=== PATIENT | female | born 1995 ===

== ENCOUNTER 2020-04-06 08:38 | Outpatient (CLI) | payer OTHER ==
[2020-04-06 09:11] VITALS: BP 135/77
[2020-04-06] MEDS ORDERED: LACTATED RINGERS 2,000 ML ONE (10:49)
[2020-04-06] MEDS: TERBUTALINE 1 MG/1 ML INJ SUB-Q SCH ×3 (11:02→12:29)
== END 2020-04-06 14:04 | disposition home or self-care (01) ==
LOC: TRG 08:38 → APU 08:39 → TRG 14:04
PROVIDERS: ATTEND Obstetrics & Gynecology
DX: O62.9 Abnormality of forces of labor, unspecified (principal); Z3A.39 39 weeks gestation of pregnancy
CPT/HCPCS: 59025; 96372; J3105; J7120; 96360; 96361

== ENCOUNTER 2020-04-07 03:37 | Inpatient (IN) | payer OTHER, SELFPAY ==
[2020-04-07] MEDS ORDERED: OXYTOCIN 10 UNIT/1 ML INJ ONE (03:44)
[2020-04-07] MEDS ORDERED: OXYTOCIN DRIP 30,000 MILLIUNITS/500 ML BAG IV ONE (03:53)
[2020-04-07] MEDS ORDERED: MINERAL OIL 30 ML ORAL LIQD PO PRN (04:15)
[2020-04-07] MEDS ORDERED: fentaNYL 100 MCG/2 ML INJ IV PRN (04:15)
[2020-04-07] MEDS ORDERED: LACTATED RINGERS 1,000 ML IV SCH (04:15)
[2020-04-07] MEDS ORDERED: ONDANSETRON 4 MG/2 ML INJ IV PRN (04:15)
[2020-04-07] MEDS ORDERED: ePHEDrine SULFATE 50 MG/1 ML INJ IV PRN (04:15)
[2020-04-07] MEDS ORDERED: LIDOCAINE (2%) 20 MG/1 ML VIAL 20 ML MDV INFILTRATI ONE (04:15)
[2020-04-07] MEDS ORDERED: OXYTOCIN DRIP 30 UNITS/500 ML BAG IV SCH (05:00)
[2020-04-07 05:01] LABS: Hematocrit 38.6 % (30.3-42.9); Hemoglobin 12.9 gm/dl (10.1-14.3); Mean Corpuscular HGB Conc 33 % (30-34); Mean Corpuscular Volume 83 fl (79-97); Platelet Count 259 K/mm3 (140-440); Red Blood Count 4.67 M/mm3 (3.65-5.03); Red Cell Distribution Width 16.5 % (13.2-15.2)
[2020-04-07] MEDS ORDERED: PROMETHAZINE 25 MG TAB PO PRN (05:36)
[2020-04-07] MEDS ORDERED: diphenhydrAMINE 25 MG CAP PO PRN (05:36)
[2020-04-07] MEDS ORDERED: WITCH HAZEL/ GLYCERIN PAD TP PRN (05:36)
[2020-04-07] MEDS ORDERED: MAGNESIUM HYDROXIDE (MOM) ORAL LIQD UDC PO PRN (05:36)
[2020-04-07] MEDS ORDERED: oxyCODONE /ACETAMINOPHEN 5-325MG TAB PO PRN (05:36)
[2020-04-07] MEDS ORDERED: PROMETHAZINE 25 MG RECT SUPP PR PRN (05:36)
[2020-04-07] MEDS ORDERED: LANOLIN/ZINC/DIMETHICONE (LANSINOH) 7 GM TP PRN (05:36)
--- NOTE | 2020-04-07 05:44 | Procedure Note ---
OB Delivery Note - Delivery Date of Delivery: 04/07/20 (0356) Estimated blood loss: other (600cc) - Vaginal Delivery presentation: vertex Delivery position: OA Intrapartum events: precipitous labor- <3hr Delivery induction: none Delivery augmentation: rupture of membranes (SROM at 0330) Delivery monitor: external FHT, external uterine Route of delivery: Delivery placenta: spontaneous (0405, alvarez) Delivery cord: 3 umbilical vessels Episiotomy: none Delivery laceration: 2nd degree, vaginal side wall (right) Delivery repair: vicryl (3.0- CT, 2.0- SH) Anesthesia: none Delivery comments: Received phone call that pt presented to L & D "complete and pushing and the baby is right here". Upon arriving to bedside, infant and placenta were already out. Informed that "pt has a laceration". Pt prepared for laceration repair. Starting lap count of 6 laps on delivery table. Uterus found to be boggy, Pitocin drip increased to 500mls/hr. Perineum found to have a second degree perineal laceration and right vaginal wall laceration. Perineal laceration tissue has shredded appearance that continues to ooze blood after repair. Vaginal packing placed. Uterus firm after repair. Lap count completed with finishing count of 26. Mother and baby safe, stable and left in care of RN. - Infant A at 1 minute: 7 at 5 minutes: 9 Infant Gender: Female (Weight: 3267gms (7lbs 3 ozs) 20.25 inches)
--- NOTE | 2020-04-07 06:13 | History and Physical Report ---
History of Present Illness Date of examination: 04/07/20 Date of admission: 04/07/20 04:04 Chief complaint: Active labor History of present illness: 24 yo, at 39.2 wks gestation per pt report of JAMES of 04/12/2020. No records are available at this time. Pt presented to [facility] fully dilated and pushing and was delivered by RN. After delivery pt reports that this is her second child and the first child was a C/S. Labs and medical history unknown. Past History - Obstetrical History : 2 Medications and Allergies Allergies Allergy/AdvReac Type Severity Reaction Status Date / Time No Known Allergies Allergy Unverified 06/02/16 05:55 Home Medications Medication Instructions Recorded Confirmed Last Taken Type Ibuprofen [Motrin 800 MG tab] 800 mg PO Q8HR PRN #30 tablet 06/02/16 Unknown Rx oxyCODONE /ACETAMINOPHEN [Percocet 1 tab PO Q6HR PRN #30 tablet 06/02/16 Unknown Rx 5/325] Active Meds: Active Medications Bisacodyl (Bisacodyl 10 Mg Rect Supp) 10 mg DC BID PRN PRN Reason: Constipation Diphenhydramine HCl (Diphenhydramine 25 Mg Cap) 25 mg PO Q6H PRN PRN Reason: Itching Ephedrine Sulfate (Ephedrine Sulfate 50 Mg/1 Ml Inj) 10 mg IV Q2M PRN PRN Reason: Hypotension Fentanyl (Fentanyl 100 Mcg/2 Ml Inj) 100 mcg IV Q2H PRN PRN Reason: Pain,Severe (7-10) LABOR PAIN Last Admin: 04/07/20 04:48 Dose: 100 mcg Documented by: Lactated Ringer's (Lactated Ringers) 1,000 mls @ 125 mls/hr IV DIRECT JESSIE Oxytocin/Sodium Chloride (Pitocin/Ns 30 Unit/500ml) 30 units in 500 mls @ 40 mls/hr IV TITR JESSIE; Protocol Last Admin: 04/07/20 04:31 Dose: 40 ml/hr, 40 mls/hr Documented by: Ibuprofen (Ibuprofen 600 Mg Tab) 600 mg PO Q6H JESSIE Magnesium Hydroxide (Magnesium Hydroxide (Mom) Oral Liqd Udc) 30 ml PO HS PRN PRN Reason: Constipation Mineral Oil (Mineral Oil 30 Ml Oral Liqd) 30 ml PO QHS PRN PRN Reason: Constipation Multi-Ingredient Ointment (Lanolin/Zinc/Dimethicone (Lansinoh) 7 Gm) 1 applic TP PRN PRN PRN Reason: Sore Nipples Ondansetron HCl (Ondansetron 4 Mg/2 Ml Inj) 4 mg IV Q8H PRN PRN Reason: Nausea And Vomiting Oxycodone/Acetaminophen (Oxycodone /Acetaminophen 5-325mg Tab) 1 tab PO Q6H PRN PRN Reason: Pain, Moderate (4-6) Promethazine HCl (Promethazine 25 Mg Rect Supp) 25 mg DC Q6H PRN PRN Reason: Nausea And Vomiting Promethazine HCl (Promethazine 25 Mg Tab) 25 mg PO Q6H PRN PRN Reason: Nausea And Vomiting Sodium Chloride (Sodium Chloride 0.9% 10 Ml Flush Syringe) 10 ml IV PRN NR Stop: 04/08/20 05:59 Witch Afia/Glycerin (Witch Afia/ Glycerin Pad) 1 each TP PRN PRN PRN Reason: Hemorrhoid/cleansing/soothing - Vital Signs Vital signs: Vital Signs Pulse BP 81 137/74 04/07/20 04:01 04/07/20 04:01 Temp Pulse Resp BP Pulse Ox 99.2 F 109 H 18 119/64 04/07/20 05:05 04/07/20 06:03 04/07/20 05:05 04/07/20 06:03 - Physical Exam Breasts: Positive: normal Cardiovascular: Regular rate Lungs: Positive: Normal air movement Abdomen: Positive: soft Vagina: Positive: other (second degree laceration and right vaginal wall laceration. Vaginal packing in place) Uterus: Positive: other (firm, U-2) Extremities: Positive: normal Deep Tendon Reflex Grade: Normal +2 Results Result Diagrams: 04/07/20 04:15 Abnormal lab results 04/07/20 Range/Units 04:15 WBC 15.7 H (4.5-11.0) K/mm3 RDW 16.5 H (13.2-15.2) % All other labs normal. Assessment and Plan - Patient Problems (1) , delivered Current Visit: Yes Status: Acute Plan to address problem: Admit to L & D Remove vaginal packing at 0800 Pain meds as desired per orders Transfer to M/B unit after vaginal packing removed if bleeding stable
[2020-04-07] MEDS: IBUPROFEN 600 MG TAB PO SCH (11:01)
[2020-04-07 16:46] LABS: Hematocrit 31.6 % (30.3-42.9); Hemoglobin 10.5 gm/dl (10.1-14.3)
[2020-04-08] MEDS: IBUPROFEN 600 MG TAB PO SCH ×2 (06:16)
[2020-04-08] MEDS ORDERED: DIPHtheria,PERTUSSIS(ACELL),TETANUS VACCINE/PF 0.5 ML VIAL IM ONE (07:00)
[2020-04-08] MEDS ORDERED: FLU VACC QUAD 2020-2021 (6 months +)/PF 60 0.5 ML SYRINGE IM ONE (12:00)
[2020-04-08 17:33] LABS: Mucus,Urine FEW /HPF
[2020-04-08 17:42] LABS: RBC,Urine > 182.0 /HPF (0.0-6.0)
--- NOTE | 2020-04-08 19:48 | Progress Note ---
Assessment and Plan PPD # 1 A: s/p Dysuria Vag magaly infection Elevated WBCs 15.7 P: UA C&S repeat cbc Keflex and Diflucan prescribed D/C home tomm if stable - Patient Problems (1) Vaginal magaly Current Visit: Yes Status: Acute (2) Dysuria Current Visit: Yes Status: Acute Subjective - Subjective Date of service: 04/08/20 Principal diagnosis: s/p Patient reports: appetite normal, voiding normally, pain well controlled, ambulating normally : doing well, bottle feeding Objective - Vital Signs Latest vital signs: Vital Signs Temp Pulse Resp BP BP Pulse Ox 04/08/20 16:35 98.6 F 96 H 18 134/77 99 04/08/20 08:30 98.4 F 93 H 18 127/73 98 04/08/20 07:16 18 04/08/20 06:16 18 04/08/20 01:04 98.3 F 101 H 18 125/77 95 04/08/20 00:00 18 Intake and Output 04/08/20 04/08/20 04/08/20 06:59 14:59 22:59 Intake Total 360 240 240 Balance 360 240 240 Intake: Oral 360 240 240 Other: Total, Intake Amount 120 240 240 # Voids Void 1 - Exam Breasts: Present: normal Abdomen: Present: normal appearance, soft, normal bowel sounds Vulva: both: normal Uterus: Present: normal, firm, fundal height below umbilicus, other (Rubra lochia wnl) Extremities: Present: normal Incision: Present: normal, intact, other (perineal vag wall incisions healing as expected) - Labs Labs: Abnormal lab results 04/08/20 Range/Units 17:00 Urine WBC (Auto) 38.0 H (0.0-6.0) /HPF
[2020-04-08 19:53] LABS: Bilirubin,Urine NEG (Negative); Blood,Urine LG (Negative); Color,Urine Yellow (Yellow); Mucus,Urine FEW /HPF; Urobilinogen,Urine < 2.0 mg/dL (<2.0)
[2020-04-08 19:55] LABS: RBC,Urine > 182.0 /HPF (0.0-6.0)
--- NOTE | 2020-04-08 20:37 | Discharge Summary ---
Providers - Providers Date of Admission: 04/07/20 04:04 Date of discharge: 04/09/20 Attending physician: ABDIEL INMAN JR, MD Primary care physician: ABDIEL INMAN JR, MD Hospitalization Reason for admission: active labor, other (baby and placenta was delivered by the time cnm made it to the hospital) Delivery: Procedure details: Pt had vag packing to stop bleeding after laceration repair. Episiotomy: none Laceration: 2nd degree Incision: normal, intact Other procedures: other (vaginal packing) complications: other (pp vag bleeding requiring vag packing) Discharge diagnosis: IUP at term delivered baby: female Hospital course: Pt arrived to hosp and had a precipitous delivery of baby and placenta w/o a provider's presence. She had 2nd perineal tears which were repaired. Vag packing was required to stop the bleeding. Pt latter complained of dysuria, She had elevated wbcs and yeast in her urine. She was given Diflucan for vag magaly and started on Keflex r/t a uti. Pt was d/cd home in stable condition on Keflex. See H&P, delivery summary and pp notes. Condition at discharge: Stable Disposition: DC-01 TO HOME OR SELFCARE - Discharge Diagnoses (1) Vaginal magaly Status: Acute (2) Dysuria Status: Acute Plan - Discharge Medications Prescriptions: cephALEXin [Keflex] 500 mg PO Q12HR #12 capsule Ibuprofen [Motrin 600 MG tab] 600 mg PO Q6H #30 tablet - Provider Discharge Summary Additional instructions: [] Smoking cessation referral if applicable(refer to patient education folder for contact #) [] Refer to [facility] Booklet Call your doctor immediately for: * Fever > 100.5 * Heavy vaginal bleeding ( >1 pad per hour) * Severe persistent headache * Shortness of breath * Reddened, hot, painful area to leg or breast * Drainage or odor from incision. * Keep incision clean and dry at all times and follow doctor's instructions regarding bathing/showering - Follow up plan Follow up: ABDIEL INMAN JR, MD [Primary Care Provider] - 6 Weeks
[2020-04-08] MEDS ORDERED: FLUCONAZOLE 100 MG TAB PO ONE (21:00)
[2020-04-08] MEDS ORDERED: FLUCONAZOLE 100 MG/10 ML ORAL SYRINGE PO ONE (21:00)
[2020-04-08] MEDS ORDERED: cephALEXin 500 MG CAP PO SCH (22:00)
[2020-04-09] MEDS ORDERED: DIPHtheria,PERTUSSIS(ACELL),TETANUS VACCINE/PF 0.5 ML VIAL IM ONE (06:00)
[2020-04-09 14:38] VITALS: BP 130/72
== END 2020-04-09 14:59 | disposition home or self-care (01) | DRG 806 ==
LOC: TRG 03:37 → APU 03:40 → LD 03:49 → TRG 04:04 → LD 04:04 → OB 08:59
PROVIDERS: ADMIT Obstetrics & Gynecology; ATTEND Obstetrics & Gynecology
PROC: 10E0XZZ Delivery of Products of Conception, External Approach (ICD-10-PCS; principal; 2020-04-07)
PROC: 0KQM0ZZ Repair Perineum Muscle, Open Approach (ICD-10-PCS; 2020-04-07)
PROC: 3E0234Z Introduction of Serum, Toxoid and Vaccine into Muscle, Percutaneous Approach (ICD-10-PCS; 2020-04-08)
DX: O34.211 Maternal care for low transverse scar from previous cesarean delivery (principal); O98.83 Other maternal infectious and parasitic diseases complicating the puerperium; Z37.0 Single live birth; Z3A.39 39 weeks gestation of pregnancy; O62.3 Precipitate labor; O70.1 Second degree perineal laceration during delivery; Z23 Encounter for immunization; B37.3 Candidiasis of vulva and vagina; Z20.828 Contact with and (suspected) exposure to other viral communicable diseases
CPT/HCPCS: 36415; 81001; 81015; 85014; 85018; 85027; 86592; 86706; 86762; 86850; 86900; 86901; 87086; 87806; 90471; 90715; G0378; A6250; J2590; J3010; U0003